=== PATIENT | female | born 1925 | race Caucasian/White ===

== ENCOUNTER 2016-09-08 13:32 | Inpatient (IN) | payer MEDICARE, OTHER ==
[~2016-09-08] VITALS: Ht 170.2 cm; Wt 51.8 kg
[~2016-09-08 13:32] MED LIST: ALPR0.5T PO; ASPI-664 PO; METO25TA7 PO; PANT40TA4 PO; SYN1 PO; THIA100T56 PO
[2016-09-08 13:35] VITALS: Ht 170.2 cm; Wt 51.8 kg
--- NOTE | 2016-09-08 14:00 | ERA ---
ER Documentation Chief Complaint Date/Time DATE: 09/08/16 TIME: 14:00 Chief Complaint BIB DAUGHTER C/O CHEST PAIN X 1 HOUR. DENIES NAUSEA/VOMITING HPI The patient is a 89-year-old female, presenting to the ER because of substernal chest discomfort radiating to both side that began about 10:30 AM, worse after she ate Greek food. The symptom lasted for approximately an hour and went away by itself. He denies similar symptoms previously. She denies fever, chills, facial pain, neck pain. She denied dysuria, polyuria, syncope, near syncope. She does not smoke, drinks socially Past medical history: Anxiety, hypothyroidism, hemochromatosis, history of cardiac arrhythmia Past surgical history: Right inguinal herniorrhaphy, right shoulder replacement ROS All systems reviewed and are negative except as per history of present illness. Medications Home Meds Reported Medications [place]-3/Dha/Epa/Fish Oil (FISH OIL 1,000 MG SOFTGEL) 1 Each Capsule, 1 EACH PO DAILY, CAP 09/08/16 Magnesium Chloride (Slow-Mag) 71.5 Mg Tablet.dr, 71.5 MG PO DAILY 09/08/16 Levothyroxine Sodium (Levothroid) 100 Mcg Tablet, 100 MCG PO BEFORE BREAKFAST, # 30 TAB 02/06/16 Alprazolam* (Xanax*) 0.5 Mg Tab, 0.5 MG PO QHS Y for SLEEP, TAB 10/18/14 Metoprolol Succinate* (Toprol XL*) 25 Mg Tab.sr.24h, 25 MG PO DAILY, TAB 10/18/14 Aspirin (Low Dose Aspirin) 81 Mg Tablet.dr, 81 MG PO DAILY 10/18/14 Discontinued Scripts Thiamine* (Vitamin B-1*) 100 Mg Tablet, 100 MG PO DAILY for 30 Days, TAB Prov:DEVANTE VILLALPANDO MD 02/11/16 Pantoprazole* (Pantoprazole*) 40 Mg Tablet., 40 MG PO DAILY@06 for 30 Days Prov:DEVANTE VILLALPANDO MD 02/11/16 Allergies Allergies: Coded Allergies: ciprofloxacin (Verified Allergy, Unknown, UPSET STOMACH , NAUSEA, 09/08/16) PMhx/Soc History of Surgery: Yes (right shoulder hernia) Anesthesia Reaction: No Hx Neurological Disorder: No Hx Respiratory Disorders: No Hx Cardiac Disorders: No Hx Psychiatric Problems: No Hx Miscellaneous Medical Probl: Yes (iron problem, dementia) Hx Alcohol Use: Yes (1 glass of red wine everyday) Hx Substance Use: No Hx Tobacco Use: No Physical Exam Vitals Vital Signs Date Time Temp Pulse Resp B/P Pulse Ox O2 Delivery O2 Flow Rate FiO2 09/08/16 19:58 99 21 09/08/16 17:17 97.2 90 15 143/81 99 Room Air 09/08/16 14:32 82 17 103/60 100 Room Air 09/08/16 13:35 97.2 90 18 119/60 94 Physical Exam Const: No acute distress. Head: Atraumatic. Eyes: Normal Conjunctiva. ENT: Normal External Ears, Nose and Mouth. Neck: Full range of motion. No meningismus. Resp: Clear to auscultation bilaterally. Cardio: Regular rate and rhythm. Abd: Soft, non distended, normal bowel sounds, non tender. Skin: No petechiae or rashes. Back: No midline or flank tenderness. Ext: No cyanosis, or edema. Neur: Awake and alert. No focal deficit Psych: Normal Mood and Affect. Result Diagram: 09/08/16 1415 09/08/16 1415 Results 24 hrs Laboratory Tests Test 09/08/16 14:15 09/08/16 17:05 White Blood Count 5.510^3/ul Red Blood Count 3.5210^6/ul Hemoglobin 12.4g/dl Hematocrit 36.5% Mean Corpuscular Volume 103.7fl Mean Corpuscular Hemoglobin 35.2pg Mean Corpuscular Hemoglobin Concent 34.0g/dl Red Cell Distribution Width 14.1% Platelet Count 75722^3/UL Mean Platelet Volume 9.4fl Neutrophils % 66.8% Lymphocytes % 21.4% Monocytes % 9.8% Eosinophils % 0.9% Basophils % 0.4% Nucleated Red Blood Cells % 0.0/100WBC Neutrophils # 3.710^3/ul Lymphocytes # 1.210^3/ul Monocytes # 0.510^3/ul Eosinophils # 0.110^3/ul Basophils # 0.010^3/ul Nucleated Red Blood Cells # 0.010^3/ul Prothrombin Time 13.2Sec Prothrombin Time Ratio 1.0 INR International Normalized Ratio 1.00 Activated Partial Thromboplast Time 29.2Sec Sodium Level 140mmol/L Potassium Level 4.5mmol/L Chloride Level 103mmol/L Carbon Dioxide Level 26mmol/L Anion Gap 16 Blood Urea Nitrogen 34mg/dl Creatinine 1.50mg/dl Glucose Level 121mg/dl Calcium Level 9.7mg/dl Troponin I < 0.012ng/ml 0.046ng/ml Magnesium Level 2.1mg/dl Current Medications Medications (Trade) Dose Ordered Sig/Padmini Route PRN Reason Start Time Stop Time Status Last Admin Dose Admin Sodium Chloride (NS) 500 ml @ 500 mls/hr Q1H ONCE IV 09/08/16 16:00 09/08/16 16:59 DC 09/08/16 16:12 Aspirin (Aspirin) 162 mg ONCE ONCE PO 09/08/16 18:30 09/08/16 18:31 DC 09/08/16 19:03 IV Flush (NS 3 ml) 3 ml PER PROTOCOL IV 09/08/16 18:30 Lorazepam (Ativan) 0.5 mg Q8H PRN PO ANXIETY 09/08/16 18:30 Ondansetron HCl (Zofran Inj) 4 mg Q6H PRN IV NAUSEA AND/OR VOMITING 09/08/16 18:30 Aspirin (Aspirin) 81 mg DAILY PO 09/09/16 09:00 Nitroglycerin (Nitroglycerin (Sl Tab) 0.4 Mg) 1 tab Q5M PRN SL CHEST PAIN 09/08/16 18:30 Acetaminophen (Tylenol Tab) 650 mg Q6H PRN PO PAIN LEVEL 1-3 OR FEVER 09/08/16 18:30 Morphine Sulfate (morphine) 2 mg Q4H PRN IV PAIN LEVEL 7-10 09/08/16 18:30 Docusate Sodium (Colace) 100 mg Q12H PRN PO CONSTIPATION 09/08/16 18:30 Magnesium Hydroxide (Milk Of Mag) 30 ml DAILY PRN PO CONSTIPATION 09/08/16 18:30 Heparin Sodium (Porcine) (Heparin (5000 Units/0.5 ml)) 5,000 unit Q12 SC 09/08/16 21:00 Alprazolam (Xanax) 0.5 mg QHS PRN PO SLEEP 09/08/16 18:30 Levothyroxine Sodium (Synthroid) 100 mcg BEFORE BREAKFAST PO 09/09/16 07:00 Metoprolol Succinate (Toprol Xl) 25 mg DAILY PO 09/09/16 09:00 Magnesium Chloride (Mag 64) 64 mg DAILY PO 09/09/16 09:00 Fish Oil (Fish Oil) 1,000 mg DAILY PO 09/09/16 09:00 Procedures/[place] [address] Radiology Main Line: [phone] DIAGNOSTIC IMAGING REPORT Patient: GABRIELLA GOMEZ : 1925 Age: 89 Sex: F MR #: [id number] DOS: 09/08/16 1412 Ordering MD: BHARATI SALDANA MD Location: E/R Room/Bed: PROCEDURE: XR Chest. CLINICAL INDICATION: Chest pain TECHNIQUE: Chest AP portable COMPARISON: None available FINDINGS: Right shoulder arthroplasty The mediastinal structures are unremarkable. There is calcification of the thoracic aorta (consistent with atherosclerosis). The heart is normal in size and configuration. The pulmonary vascularity is normal. The lung barillas are unremarkable. No consolidation is identified. The pleural spaces are unremarkable. There are senescent changes of the axial skeleton. IMPRESSION: Calcification of the thoracic aorta (consistent with atherosclerosis). No evidence for active cardiopulmonary disease. RPTAT: HGDB .Jesus Truong MD, MD Date Time Electronically viewed and signed by .Jesus Truong MD, MD on 09/08/2016 14:55 .B/ CC: BHARATI SALDANA MD EKG: At 1340 hrs. read by emergency physician Rate/Rhythm: Normal Sinus Rhythm 96 beats/min QRS, ST, T-waves: No ST elevation, no T inversion, left bundle branch block Impression: Abnormal EKG EKG: At 1523 hrs. read by emergency physician Rate/Rhythm: Normal Sinus Rhythm 80 beats/min QRS, ST, T-waves: No ST elevation, no T inversion, left bundle branch block, PVC Impression: Abnormal EKG EKG: At 1710 hrs. read by emergency physician Rate/Rhythm: Atrial fibrillation 96 beats/min QRS, ST, T-waves: No ST elevation, no T inversion Impression: Abnormal EKG EKG: At 1719 hrs. read by emergency physician Rate/Rhythm: Sinus tachycardia 133 beats/min QRS, ST, T-waves: No ST elevation, no T inversion, first-degree AV block Impression: Abnormal EKG MEDICAL MAKING DECISION: The patient is a 89-year-old female, presenting with acute chest pain, transient nonsustained V. tach on the monitor, paroxysmal atrial fibrillation, acute dehydration, acute renal insufficiency. He was treated with 500 mL normal saline for acute dehydration, aspirin was \162 mg p.o. for acute chest pain with good response. The differential diagnoses considered include but are not limited to acute coronary syndrome, acute myocardial infarction, pericarditis, pulmonary embolism , aortic dissection, pneumonia, pleural effusion, pneumothorax, GERD, chest wall pain. Consultation: I discussed the patient with cardiology Dr. Bonilla per the admitting physician Dr. Brooks request at 6:50 PM. He was made aware of the lab, the treatment, the patient condition he accepted the consult Departure Diagnosis: Primary Impression: Chest pain Additional Impressions: Paroxysmal atrial fibrillation Nonsustained ventricular tachycardia Renal insufficiency Condition: Stable Comments I discussed the findings with the patient. I discussed the patient with her physician Dr. Brooks at 6:15 PM who was made aware of the lab, the treatment, the patient condition. The patient is admitted to telemetry BHARATI SALDANA MD Sep 08, 2016 14:00
[2016-09-08] MEDS ORDERED: MAGN71.5 PO (14:15)
[2016-09-08] MEDS ORDERED: OMEG1CAP31 PO (14:16)
[2016-09-08 14:27] LABS: ADD SCAN DIFF NO
[2016-09-08 14:31] LABS: BASOPHILS % 0.4 % (0.0-2.0); EOSINOPHILS # 0.1 10^3/ul (0.0-0.5); EOSINOPHILS % 0.9 % (0.0-7.0); HEMATOCRIT 36.5 % (37.0-47.0); HEMOGLOBIN 12.4 g/dl (12.0-16.0); LYMPHOCYTES # 1.2 10^3/ul (0.8-2.9); LYMPHOCYTES % 21.4 % (15.0-51.0); MEAN CORPUSCULAR HEMOGLOBIN 35.2 pg (29.0-33.0); MEAN CORPUSCULAR VOLUME 103.7 fl (82.0-101.0); MEAN PLATELET VOLUME 9.4 fl (7.4-10.4); MONOCYTE # 0.5 10^3/ul (0.3-0.9); MONOCYTES % 9.8 % (0.0-11.0); NEUTROPHIL # 3.7 10^3/ul (1.6-7.5); NEUTROPHILS % 66.8 % (39.0-77.0); PLATELET COUNT 190 10^3/UL (140-415); RED BLOOD COUNT 3.52 10^6/ul (4.20-5.40); RED CELL DISTRIBUTION WIDTH 14.1 % (11.5-14.5); WHITE BLOOD COUNT 5.5 10^3/ul (4.8-10.8)
[2016-09-08 14:48] LABS: PARTIAL THROMBOPLASTIN TIME 29.2 Sec (25.0-35.0); PROTIME 13.2 Sec (12.2-14.2)
[2016-09-08 14:52] LABS: ANION GAP 16 (8-16); BLOOD UREA NITROGEN 34 mg/dl (7-20); CALCIUM 9.7 mg/dl (8.4-10.2); CARBON DIOXIDE 26 mmol/L (21-31); CHLORIDE 103 mmol/L (97-110); GLUCOSE 121 mg/dl (70-220); POTASSIUM 4.5 mmol/L (3.5-5.1); SODIUM 140 mmol/L (135-144)
--- NOTE | 2016-09-08 14:56 | RADRPT ---
PROCEDURE: XR Chest. CLINICAL INDICATION: Chest pain TECHNIQUE: Chest AP portable COMPARISON: None available FINDINGS: Right shoulder arthroplasty The mediastinal structures are unremarkable. There is calcification of the thoracic aorta (consiste nt with atherosclerosis). The heart is normal in size and configuration. The pulmonary vascularity is normal. The lung barillas are unremarkable. No consolidation is identified. The pleural spaces are unremarkable. There are senescent changes of the axial skeleton. IMPRESSION: Calcification of the thoracic aorta (consistent with atherosclerosis). No evidence for active cardiopulmonary disease. RPTAT: HGDB .Jesus Truong MD, MD Date Time Electronically viewed and signed by .Jesus Truong MD, on 09/08/2016 14:55 .B/
[2016-09-08 15:31] LABS: TROPONIN-I < 0.012 ng/ml (0.00-0.12)
[2016-09-08] MEDS ORDERED: SOD CHLORIDE 0.9% 500 ML IV ONE (16:00)
[2016-09-08] MEDS ORDERED: NITROGLYCERIN (SL) 0.4 MG TAB SL PRN (18:30)
[2016-09-08] MEDS ORDERED: ASPIRIN 81 MG TAB PO ONE (18:30)
[2016-09-08] MEDS ORDERED: ALPRAZOLAM 0.5 MG TAB PO PRN (18:30)
[2016-09-08] MEDS ORDERED: NACL 0.9% 3 ML SYG IV SCH (18:30)
[2016-09-08] MEDS ORDERED: LORAZEPAM 0.5 MG TAB PO PRN (18:30)
[2016-09-08] MEDS ORDERED: ACETAMINOPHEN 325 MG TAB PO PRN (18:30)
[2016-09-08] MEDS ORDERED: ONDANSETRON 4 MG INJ IV PRN (18:30)
[2016-09-08] MEDS ORDERED: MAGNESIUM HYDROXIDE 30ML CUP PO PRN (18:30)
[2016-09-08] MEDS ORDERED: morphine 2 MG INJ IV PRN (18:30)
[2016-09-08] MEDS ORDERED: DOCUSATE SODIUM 100 MG CAP PO PRN (18:30)
[2016-09-08] MEDS: HEPARIN 5,000 UNIT/0.5 ML VIAL SC SCH (20:39)
[2016-09-08] MEDS ORDERED: ALPRAZOLAM 0.25 MG TAB PO PRN (22:00)
[2016-09-08 22:24] LABS: CK-MB 2.87 ng/ml (0.0-2.4); TROPONIN-I 0.066 ng/ml (0.00-0.12)
[2016-09-09 06:04] VITALS: TEMP 98.1
[2016-09-09 06:19] LABS: ADD SCAN DIFF NO
[2016-09-09 06:28] LABS: BASOPHILS % 0.8 % (0.0-2.0); EOSINOPHILS # 0.1 10^3/ul (0.0-0.5); EOSINOPHILS % 2.6 % (0.0-7.0); HEMOGLOBIN 11.1 g/dl (12.0-16.0); LYMPHOCYTES # 1.3 10^3/ul (0.8-2.9); LYMPHOCYTES % 34.8 % (15.0-51.0); MEAN CORPUSCULAR HEMOGLOBIN 35.1 pg (29.0-33.0); MEAN CORPUSCULAR HGB CONC 33.6 g/dl (32.0-37.0); MEAN CORPUSCULAR VOLUME 104.4 fl (82.0-101.0); MEAN PLATELET VOLUME 9.5 fl (7.4-10.4); MONOCYTE # 0.4 10^3/ul (0.3-0.9); NEUTROPHIL # 1.9 10^3/ul (1.6-7.5); NEUTROPHILS % 50.3 % (39.0-77.0); PLATELET COUNT 158 10^3/UL (140-415); RED BLOOD COUNT 3.16 10^6/ul (4.20-5.40); RED CELL DISTRIBUTION WIDTH 13.9 % (11.5-14.5); WHITE BLOOD COUNT 3.8 10^3/ul (4.8-10.8)
[2016-09-09 06:57] LABS: ALBUMIN 4.1 g/dl (3.3-4.9); ALBUMIN/GLOBULIN RATIO 2.27; BILIRUBIN,INDIRECT 1.2 mg/dl (0-1.1); BILIRUBIN,TOTAL 1.2 mg/dl (0.2-1.3); CREATININE 0.95 mg/dl (0.44-1.00); POTASSIUM 3.7 mmol/L (3.5-5.1); TOTAL PROTEIN 5.9 g/dl (6.1-8.1)
[2016-09-09 06:58] LABS: CK-MB 2.77 ng/ml (0.0-2.4); TROPONIN-I 0.063 ng/ml (0.00-0.12)
[2016-09-09] MEDS ORDERED: LEVOTHYROXINE 100 MCG TAB PO SCH (07:00)
[2016-09-09 07:42] LABS: T3 UPTAKE 38.8 % (23.5-40.5)
[2016-09-09 08:07] LABS: THYROID STIMULATING HORMONE 3.94 MIU/L (0.465-4.680)
[2016-09-09] MEDS ORDERED: FISH OIL 1,000 MG CAP PO SCH (09:00)
[2016-09-09] MEDS ORDERED: MAGNESIUM CHLORIDE (SR) 64 MG TAB PO SCH (09:00)
[2016-09-09] MEDS ORDERED: ASPIRIN 81 MG TAB PO SCH (09:00)
[2016-09-09] MEDS ORDERED: METOPROLOL (XL) 25 MG TAB PO SCH (09:00)
[2016-09-09] MEDS: HEPARIN 5,000 UNIT/0.5 ML VIAL SC SCH (10:19)
--- NOTE | 2016-09-09 12:03 | HP ---
Date/Time of Note Date/Time of Note DATE: 09/09/16 TIME: 11:57 Assessment/Plan VTE Prophylaxis VTE Prophylaxis Intervention: other Lines/Catheters IV [facility] Saline Lock Assessment/Plan Problems: (1) Chest pain Status: Acute Comment: She has ruled out for myocardial infarction during her stay in the emergency room. She has been seen in cardiology consultation by Dr. Sorensen, and he and I are of the consideration of this is a noncardiac issue although may be related to her alcohol consumption. She will contact [facility] for a Holter monitor later this week and will discharge her for outpatient follow-up. Qualifiers: Chest pain type: intercostal pain Qualified Code: R07.82 - Intercostal pain (2) Renal insufficiency Status: Acute Comment: Noted and stable (3) Hemochromatosis Status: Chronic Comment: Noted and stable Qualifiers: Hemochromatosis type: hereditary Qualified Code: E83.110 - Hereditary hemochromatosis (4) Acquired hypothyroidism Status: Chronic Comment: Continue replacement therapy (5) Aortic stenosis Status: Chronic Comment: Noted. It does not appear to be at issue at this time Qualifiers: Cardiac valve disease etiology: nonrheumatic Qualified Code: I35.0 - Nonrheumatic aortic valve stenosis (6) Alcohol consumption heavy Status: Chronic Comment: Continue thiamine HPI/ROS Admit Date/Time Admit Date/Time 09/08/2016 Hx of Present Illness 89-year-old female with chief complaint of chest pain. She was on her way to get [place] food and wall there was under the impression her bra was too tight. She developed a sensation of generalized stiffness in the chest without associated shortness of breath palpitations diaphoresis or nausea. She went home but due to persistent symptoms she asked her daughter bring in the emergency room. On the right into the emergency room her symptoms fully resolved. ROS Constitutional: no complaints (Denies fevers chills or sweats) Eyes: no complaints ENT: no complaints Respiratory: no complaints (Denies cough shortness of breath wheezing) Cardiovascular: no complaints (Reports her chest pain fully resolved and orthopnea no palpitations no PND. 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 Alcohol Use: heavy Smoking Status: Never smoker Drug Use: none Exam/Review of Systems Vital Signs Vitals Vital Signs Date Time Temp Pulse Resp B/P Pulse Ox O2 Delivery O2 Flow Rate FiO2 09/09/16 08:35 90 24 150/82 94 Nasal Cannula 2.0 09/09/16 06:04 98.1 09/08/16 19:58 21 Intake and Output 09/08/16 09/08/16 09/09/16 15:00 23:00 07:00 Intake Total 500 ml Balance 500 ml Exam Constitutional: alert, oriented Head: atraumatic, normocephalic Eyes: EOMI, PERRL, fundi, disc (Not visualized), nl conjunctiva, nl sclera ENMT: mucosa pink and moist, nl external ears & nose, nl lips & teeth, nl nasal mucosa & septum, tympanic membranes Neck: non-tender, supple Respiratory: clear to auscultation, normal air movement Cardiovascular: edema (No edema), murmurs/extra sounds (Murmur crescendo decrescendo systolic left upper sternal border with radiation to the carotids), nl pulses, regular rate and rhythm Gastrointestinal: nl liver, spleen, non-tender, soft Extremities: normal pulses Neurological: PLANT INSPECTOR II-XII intact, nl mental status, nl speech, nl strength Skin: nl turgor Labs Result Diagram: 09/09/16 0530 09/09/16 0532 Medications Medications Current Medications Lorazepam (Ativan) 0.5 mg Q8H PRN PO ANXIETY; Start 09/08/16 at 18:30 Ondansetron HCl (Zofran Inj) 4 mg Q6H PRN IV NAUSEA AND/OR VOMITING; Start at 18:30 Aspirin (Aspirin) 81 mg DAILY PO Last administered on 09/09/16t 09:47; Admin Dose 81 MG; Start 09/09/16 at 09:00 Nitroglycerin (Nitroglycerin (Sl Tab) 0.4 Mg) 1 tab Q5M PRN SL CHEST PAIN; Start 09/08/16 at 18:30 Acetaminophen (Tylenol Tab) 650 mg Q6H PRN PO PAIN LEVEL 1-3 OR FEVER; Start at 18:30 Morphine Sulfate (morphine) 2 mg Q4H PRN IV PAIN LEVEL 7-10; Start 09/08/16 at 18:30 Docusate Sodium (Colace) 100 mg Q12H PRN PO CONSTIPATION; Start 09/08/16 at 18: 30 Magnesium Hydroxide (Milk Of Mag) 30 ml DAILY PRN PO CONSTIPATION; Start at 18:30 Heparin Sodium (Porcine) (Heparin (5000 Units/0.5 ml)) 5,000 unit Q12 SC Last administered on 09/09/16 10:19; Admin Dose 5,000 UNIT; Start 09/08/16 at 21:00 Metoprolol Succinate (Toprol Xl) 25 mg DAILY PO Last administered on 09/09/16 09:45; Admin Dose 25 MG; Start 09/09/16 at 09:00 Magnesium Chloride (Mag 64) 64 mg DAILY PO Last administered on 09/09/16 09:45 ; Admin Dose 64 MG; Start 09/09/16 at 09:00 Fish Oil (Fish Oil) 1,000 mg DAILY PO Last administered on 09/09/16 09:43; Admin Dose 1,000 MG; Start 09/09/16 at 09:00 Alprazolam (Xanax) 0.5 mg QHS PRN PO SLEEP Last administered on 09/08/16 21:59 ; Admin Dose 0.5 MG; Start 09/08/16 at 22:00 DEVANTE VILLALPANDO MD Sep 09, 2016 12:03
--- NOTE | 2016-09-09 12:05 | PDOCDIS ---
Discharge Instructions DIAGNOSIS Discharge Diagnosis: Atrial dysrhythmia; noncardiac chest pain; alcohol consumption CONDITION Patient Condition: Fair HOME CARE INSTRUCTIONS: Diet Instructions: Regular ACTIVITY: Activity Restrictions: No Restrictions Do not operate Power Tool FOLLOW UP/APPOINTMENTS Appointments Contact Dr. oSrensen office this afternoon for appointment this week for Holter monitoring. Contact Dr. Riley in for appointment in 2 weeks SCHOOL/WORK RELEASE May return to School/Work with: No Restrictions DEVANTE RILEY MD Sep 09, 2016 12:05
[2016-09-09 12:06] VITALS: BP 120/64; PULSE 69; RESP 22
[2016-09-09] MEDS ORDERED: THIA100T10 PO (12:06)
--- NOTE | 2016-09-10 00:07 | CONS ---
Date/Time of Note Date/Time of Note DATE: 09/09/16 TIME: 23:54 Assessment/Plan Assessment/Plan Chief Complaint/Hosp Course Impression: Chest pain- atypical lasting for hours at rest, spontaneously resolved. pt r/o for ACS, has previous negative stress in 2014. recent echo within the last 6 mo with normal lvef, moderate aortic stenosis. possibly pain related to SVT which has resolved. would continue current therapy with asa, metoprolol and f/u as outpatient. SVT- likely PAT which she has reported history. less likely aflutter. no e/o prolonged arrhythmia > 48hrs. would cont asa metoprolol as well and cont eval as outpt Moderate - asymptomatic, cont outpt periodic evaluation Problems: Consultation Date/Type/Reason Admit Date/Time 09/08/2016 Date of Consultation: Sep 09, 2016 Type of Consultation: Cardiology Reason for Consultation Chest pain Referring Provider: DEVANTE VILLALPANDO MD Hx of Present Illness Ms. Cordova is a pleasant 89 y.o. woman who lives independently. She was seen in [facility] ED this morning after presenting with chest pain. Pt and daughter report having chest pain, sub sternal squeezing mild to moderate in the morning. no associated n/v, sweating, sob. pain continued after lunch and was brought to [facility] ED, though pain stopped on route to ED she states. no recurrence. no previous episodes. pain did not occur with activity. She reports that she is fairly active can walk around and lives independently. Denies pnd , orthonea, edema. no palpitations, dizziness, fainting. Pt found to be tachy in ED with HRs to 130s, EKG shows SVT with LBBB which is old. SVT likely atrial tachycardia which pt does have previous history. there is no e/of afib on ekg provided. SVT converted spontaneously to NSR pt has since r/o for ACS as well with flat/negative troponin. CxR is reviewed and without acute abnl. Constitutional: no complaints Eyes: no complaints ENT: no complaints Respiratory: no complaints (Denies cough shortness of breath wheezing) Cardiovascular: chest pain Gastrointestinal: no complaints Genitourinary: no complaints Musculoskeletal: no complaints Skin: no complaints Neurologic: no complaints Psychological: nl mood/affect, no complaints Past Medical History Proxsymal Atrial Tachcycardia Moderate aortic stenosis Hypothyroidism DJD/OA Past Surgical History Past Surgical Hx: noncontributory Family History Significant Family History: other (no cad) Social History Alcohol Use: occasionally Smoking Status: Never smoker Drug Use: none Exam/Review of Systems Vital Signs Vitals Vital Signs Date Time Temp Pulse Resp B/P Pulse Ox O2 Delivery O2 Flow Rate FiO2 09/09/16 12:06 69 22 120/64 96 Nasal Cannula 2.0 09/09/16 06:04 98.1 09/08/16 19:58 21 Intake and Output 09/08/16 09/08/16 09/09/16 15:00 23:00 07:00 Intake Total 500 ml Balance 500 ml Exam Constitutional: alert, oriented, well developed Psych: nl mood/affect, no complaints Head: normocephalic Eyes: EOMI, nl conjunctiva ENMT: nl external ears & nose Neck: non-tender, supple, No jvd Respiratory: clear to auscultation, normal air movement Cardiovascular: nl pulses, regular rate and rhythm, systolic murmur, No S3, No S4, No edema, No irregular rhythm Gastrointestinal: non-tender, soft Musculoskeletal: nl extremities to inspection, nl gait and stance Extremities: normal pulses Neurological: PASTRYCOOK II-XII intact, nl mental status, nl speech, nl strength Results Result Diagram: 09/09/1630 09/09/16 0532 Results 24 hrs Laboratory Tests Test 09/09/16 05:30 09/09/16 05:32 White Blood Count 3.8 #L Red Blood Count 3.16 L Hemoglobin 11.1 L Hematocrit 33.0 L Mean Corpuscular Volume 104.4 H Mean Corpuscular Hemoglobin 35.1 H Mean Corpuscular Hemoglobin Concent 33.6 Red Cell Distribution Width 13.9 Platelet Count 158 Mean Platelet Volume 9.5 Neutrophils % 50.3 Lymphocytes % 34.8 Monocytes % 11.0 Eosinophils % 2.6 Basophils % 0.8 Nucleated Red Blood Cells % 0.0 Neutrophils # 1.9 Lymphocytes # 1.3 Monocytes # 0.4 Eosinophils # 0.1 Basophils # 0.0 Nucleated Red Blood Cells # 0.0 Sodium Level 139 Potassium Level 3.7 Chloride Level 107 Carbon Dioxide Level 25 Anion Gap 11 Blood Urea Nitrogen 25 H Creatinine 0.95 Glucose Level 82 Calcium Level 9.0 Total Bilirubin 1.2 Direct Bilirubin 0.00 Indirect Bilirubin 1.2 H Aspartate Amino Transf (AST/SGOT) 40 Alanine Aminotransferase (ALT/SGPT) 36 Alkaline Phosphatase 47 Creatine Kinase 77 Creatine Kinase Index 3.6 Creatinine Kinase MB (Mass) 2.77 H Troponin I 0.063 Total Protein 5.9 L Albumin 4.1 Globulin 1.80 Albumin/Globulin Ratio 2.27 Triglycerides Level 119 Cholesterol Level 159 LDL Cholesterol, Calculated 56 HDL Cholesterol 79 Cholesterol/HDL Ratio 2.0 Thyroid Stimulating Hormone (TSH) 3.940 Free Thyroxine Index 2.06 Thyroxine (T4) 5.3 L Triiodothyronine (T3) Uptake 38.8 BIBIANA POTTS Sep 10, 2016 00:05
--- NOTE | 2016-09-23 19:07 | RADRPT ---
Echocardiogram Report Patient Name: GABRIELLA GOMEZ Gender: Female Date: 1925 Study Date: 09-Sep-2016 Rag Inspector: Gregoria Sales RDCS Location: [facility] Ref. Physician: BHARATI KHOURY Quality: Good Procedures: Transthoracic echocardiogram with complete 2D, M-Mode, and doppler examination. Indications: new onset Atrial Fibrillation. Chest Pain. NSV-Tachycardia. 2D/M Mode Doppler Measurement Value Normal Ranges Measurement Value Normal Ranges LVIDd 2D 3.0 3.5 - 5.6 cm DIANA Vmax 1.2 cm2 LVIDs 2D 2.5 2.1 - 4.1 cm DIANA VTI 1.2 cm2 FS 2D 15.7 % AV Mean Zack 2.0 m/sec LVPWd 2D 1.3 0.6 - 1.1 cm AV Mean PG 18.0 mmHg IVSd 2D 1.5 0.6 - 1.1 cm AV Peak Zack 2.9 m/sec IVS/LVPW 2D 1.2 AV Peak PG 34.0 mmHg AoR Diam 2D 2.9 2.0 - 3.7 cm AV VTI 72.5 cm LA/Ao 2D 1 0 - 1 AI Peak PG 48.0 mmHg EDV 2D 26.7 cm3 AI Peak Zack 3.5 m/sec ESV 2D 16.0 cm3 AI PHT 451.0 msec LA Dimen 2D 2.9 2.3 - 4.0 cm LVOT Mean Zack 0.8 m/sec LVOT Diam 1.8 cm LVOT Mean PG 3.0 mmHg LVOT Area 2.5 cm2 LVOT Peak Zack 1.4 m/sec LVOT Peak PG 7.0 mmHg LVOT VTI 34.1 cm MV E Peak Zack 1.0 m/sec MV A Peak Zack 1.1 m/sec MV E/A 0.9 MV Decel Time 254 msec MV E/A 0.9 TR Peak Zack 3.1 m/sec TR Peak PG 38.0 mmHg RVSP 46.0 mmHg Findings Left Ventricle: Normal left ventricular systolic function. Normal left ventricular cavity size. Moderate concentric left ventricular hypertrophy. Ejection fraction is visually estimated at 65 %. Tissue Doppler/Mitral Doppler indices are consistent with impaired relaxation (Stage I diastolic dysfunction). Right Ventricle: Normal right ventricular size. Normal right ventricular systolic function. Left Atrium: The left atrium is normal in size. Right Atrium: The right atrium is normal in size. Mitral Valve: Mitral valve leaflets appear mildly thickened. Mild mitral annular calcification. Mild mitral valve regurgitation. Aortic Valve: Mild to moderate aortic stenosis. Aortic valve Max velocity 2.90 m/sec. Max PG 34.00 mmHg. Mean PG 18.00 mmHg. Aortic valve area 1.90 cm2. Aortic cusps appear moderately calcified. Trace aortic valve regurgitation. Tricuspid Valve: Normal appearance of the tricuspid valve. Estimated peak PA systolic pressure 46 mmHg. There is mild to moderate tricuspid regurgitation. Pulmonic Valve: Pulmonic valve not well visualized. Pericardium: Normal pericardium with no significant pericardial effusion. Aorta: Normal aortic root. IVC: Normal size and no respiratory collapse consistent with elevated right atrial pressure. Conclusions Normal left ventricular systolic function. Normal left ventricular cavity size. Moderate concentric left ventricular hypertrophy. Ejection fraction is visually estimated at 65 %. Tissue Doppler/Mitral Doppler indices are consistent with impaired relaxation (Stage I diastolic dysfunction). Normal right ventricular size. Normal right ventricular systolic function. Mitral valve leaflets appear mildly thickened. Mild mitral annular calcification. Moderate mitral valve regurgitation. Mild to moderate aortic stenosis. Aortic cusps appear moderately calcified. Trace aortic valve regurgitation. Normal appearance of the tricuspid valve. Estimated peak PA systolic pressure 46 mmHg. There is moderate to severe tricuspid regurgitation. Moderate Pulmonary Hypertension. Normal pericardium with no significant pericardial effusion. Electronically Signed By: Loi Sneed 23-Sep-2016 19:07:03 -0700 Patient Name: GABRIELLA GOMEZ Study Date: 09-Sep-2016 [id number]
== END 2016-09-09 12:06 | disposition home or self-care (01) | DRG 310 ==
LOC: E/R 13:32 → TEL 18:21 → E/R 09-09 12:45
PROVIDERS: ADMIT Internal Medicine; ATTEND Internal Medicine
DX: I47.1 Supraventricular tachycardia (principal); E86.0 Dehydration; I48.0 Paroxysmal atrial fibrillation; E03.9 Hypothyroidism, unspecified; F41.9 Anxiety disorder, unspecified; E83.110 Hereditary hemochromatosis; F10.10 Alcohol abuse, uncomplicated; I35.0 Nonrheumatic aortic (valve) stenosis; N28.9 Disorder of kidney and ureter, unspecified; N18.2 Chronic kidney disease, stage 2 (mild); Z79.82 Long term (current) use of aspirin; Z79.01 Long term (current) use of anticoagulants
CPT/HCPCS: 36415; 71010; 80048; 80053; 80061; 82550; 82553; 83735; 84436; 84443; 84479; 84484; 85025; 85610; 85730; 93005; 93306; 96360; 96372; J1644; J7040